=== PATIENT | male | born 1960 | race American Indian/Alaskan Native ===

== ENCOUNTER 2019-09-30 16:17 | Outpatient (CLI) | payer BC ==
[2019-09-30 16:46] LABS: Hemoglobin 15.8 gm/dl (11.8-15.2); Mean Corpuscular HGB Conc 34 % (32-34); Mean Corpuscular Volume 97 fl (84-94); Platelet Count 270 K/mm3 (140-440); Red Blood Count 4.87 M/mm3 (3.65-5.03); Red Cell Distribution Width 13.7 % (13.2-15.2)
[2019-09-30 16:55] LABS: Alanine Aminotransferase 24 units/L (7-56); Albumin 4.5 g/dL (3.9-5); BUN/Creatinine Ratio 9; Blood Urea Nitrogen 9 mg/dL (9-20); Calcium 9.4 mg/dL (8.4-10.2); Hemolysis Index 1
[2019-09-30 17:21] LABS: Erythrocyte Sedimentation Rate 6 mm/Hr (0-20)
== END 2019-09-30 16:18 | disposition home or self-care (01) ==
LOC: LAB 16:17
PROVIDERS: ATTEND Specialist
DX: S06.0X0A Concussion without loss of consciousness, initial encounter (principal); X58.XXXA Exposure to other specified factors, initial encounter; Y93.89 Activity, other specified; Y92.89 Other specified places as the place of occurrence of the external cause; Y99.8 Other external cause status
CPT/HCPCS: 36415; 80053; 85027; 85652

== ENCOUNTER 2021-04-21 11:54 | Outpatient (CLI) | payer BC ==
[2021-04-21 13:33] LABS: Hematocrit 46.8 % (35.5-45.6); Hemoglobin 15.9 gm/dl (11.8-15.2); Mean Corpuscular HGB Conc 34 % (32-34); Mean Corpuscular Volume 96 fl (84-94); Platelet Count 208 K/mm3 (140-440); Red Blood Count 4.86 M/mm3 (3.65-5.03)
[2021-04-21 13:34] LABS: Alanine Aminotransferase 21 units/L (7-56); Albumin 4.2 g/dL (3.9-5); BUN/Creatinine Ratio 13; Blood Urea Nitrogen 14 mg/dL (9-20); Calcium 9.3 mg/dL (8.4-10.2); Hemolysis Index 4
[2021-04-21 13:49] LABS: Erythrocyte Sedimentation Rate 5 mm/Hr (0-20)
[2021-04-24 12:51] LABS: Vitamin D, 25-OH, D2 <4 ng/mL
[2021-04-25 04:13] LABS: Albumin 4.3 g/dL (3.8-4.8)
[2021-04-27 12:41] LABS: ANA Screen, IFA Negative (Negative)
== END 2021-04-21 11:55 | disposition home or self-care (01) ==
LOC: LAB 11:54
PROVIDERS: ATTEND Specialist
DX: G65.1 Sequelae of other inflammatory polyneuropathy (principal); G61.9 Inflammatory polyneuropathy, unspecified
CPT/HCPCS: 36415; 80053; 82306; 82607; 83036; 83921; 84165; 84443; 85027; 85652; 86038; 86225; 86334; 86592

== ENCOUNTER 2021-12-01 15:33 | Outpatient (CLI) | payer BC ==
[2021-12-01 16:49] LABS: Mean Corpuscular HGB Conc 31 % (32-34); Mean Corpuscular Volume 97 fl (84-94); Platelet Count 237 K/mm3 (140-440); Red Cell Distribution Width 13.1 % (13.2-15.2)
[2021-12-01 16:52] LABS: Hematocrit 51.5 % (35.5-45.6); Hemoglobin 16.1 gm/dl (11.8-15.2)
[2021-12-01 17:07] LABS: Erythrocyte Sedimentation Rate 4 mm/Hr (0-20)
[2021-12-01 17:24] LABS: Alanine Aminotransferase 49 units/L (7-56); Albumin 4.6 g/dL (3.9-5); BUN/Creatinine Ratio 14; Blood Urea Nitrogen 14 mg/dL (9-20); Hemolysis Index 5
== END 2021-12-01 15:34 | disposition home or self-care (01) ==
LOC: LAB 15:33
PROVIDERS: ATTEND Specialist
DX: G61.9 Inflammatory polyneuropathy, unspecified (principal); G62.9 Polyneuropathy, unspecified
CPT/HCPCS: 36415; 80053; 82306; 82607; 83036; 83921; 84165; 84443; 85027; 85652; 86038; 86334; 86592